=== PATIENT | female | born 1955 | race Caucasian/White ===

== ENCOUNTER 2018-11-08 11:32 | Day surgery (SDC) | payer OTHER ==
[~2018-11-08] VITALS: Ht 157.5 cm; Wt 71.5 kg
[~2018-11-08 11:32] MED LIST: OMEPRAZOLE20 MG
== END 2018-11-08 13:49 | disposition home or self-care (01) ==
LOC: ORSCSDS 11:32
PROVIDERS: Surgery
PROC: 0DJD8ZZ Inspection of Lower Intestinal Tract, Via Natural or Artificial Opening Endoscopic (ICD-10-PCS; principal; 2018-11-08 13:00)
DX: Z12.11 Encounter for screening for malignant neoplasm of colon (principal); K57.30 Diverticulosis of large intestine without perforation or abscess without bleeding; K64.8 Other hemorrhoids; I10 Essential (primary) hypertension; K21.9 Gastro-esophageal reflux disease without esophagitis; Z79.899 Other long term (current) drug therapy
CPT/HCPCS: J2704; J7120

== ENCOUNTER 2019-03-17 02:58 | Emergency (ER) | payer OTHER ==
[~2019-03-17] VITALS: Ht 157.5 cm; Wt 69.0 kg
[~2019-03-17 02:58] MED LIST changes: +ACET325 PO; +Colace100 MG PO; +ESOM20 PO; +Hydrocodone-Ap1 EA23 PO
[2019-03-17 04:03] LABS: BASOPHILS ABSOLUTE AUTO 0.03 K/mm3 (0.00-0.23); BASOPHILS PERCENT AUTO 0 % (0-2); EOSINOPHILS ABSOLUTE AUTO 0.11 K/mm3 (0.00-0.68); EOSINOPHILS PERCENT AUTO 1 % (0-6); Hematocrit 35.6 % (33.0-51.0); Hemoglobin 11.5 g/dL (11.5-16.0); IMMATURE GRAN ABSOLUTE AUTO 0.02 K/mm3 (0.00-0.10); IMMATURE GRAN PERCENT AUTO 0 % (0-1); LYMPHOCYTES ABSOLUTE AUTO 2.36 K/mm3 (0.84-5.20); LYMPHOCYTES PERCENT AUTO 27 % (21-46); MONOCYTES ABSOLUTE AUTO 0.47 K/mm3 (0.16-1.47); MONOCYTES PERCENT AUTO 5 % (4-13); Mean Corpuscular HGB 28.1 pg (26.0-34.0); Mean Corpuscular HGB Conc 32.3 g/dL (31.5-36.5); Mean Corpuscular Volume 87 fL (80-100); Mean Platelet Volume 9.5 fL (9.1-12.4); NEUTROPHILS PERCENT AUTO 66 % (41-73); Platelet Count 274 K/mm3 (150-400); RDW Standard Deviation 41.5 fL (35.1-46.3); Red Blood Cell Count 4.09 M/mm3 (3.80-5.20); White Blood Cell Count 8.69 K/mm3 (4.00-11.30)
[2019-03-17 04:27] LABS: Alanine Aminotransfer (ALT/SGP 20 U/L (12-78); Albumin, Blood 3.6 g/dL (3.4-5.0); Alk Phos 79 U/L (50-136); Anion Gap 7 mmol/L (6-16); Aspartate Aminotrans (AST/SGOT 15 U/L (12-37); Bilirubin, Total 0.2 mg/dL (0.1-1.0); Blood Urea Nitrogen 18 mg/dL (8-24); Bun/Creatinine Ratio 22.8 (12.0-20.0); CO2, Blood 26 mmol/L (21-32); Calcium, Blood 8.7 mg/dL (8.5-10.1); Chloride, Blood 106 mmol/L (98-108); Creatinine, Blood 0.79 mg/dL (0.40-1.00); Globulin, Blood 3.5 g/dL (2.2-4.0); Glomerular Filtration Rate >60 (60-); Glucose, Blood 120 mg/dL (70-99); Potassium, Blood 3.7 mmol/L (3.5-5.5); Sodium, Blood 139 mmol/L (136-145); Total Protein, Blood 7.1 g/dL (6.4-8.2)
[2019-03-17 05:31] LABS: Magnesium, Blood 2.3 mg/dL (1.6-2.4)
[2019-03-17 05:39] LABS: Troponin I <0.015 ng/mL (0.000-0.040)
== END 2019-03-17 07:05 | disposition home or self-care (01) ==
LOC: ER 02:58
PROVIDERS: Emergency Medicine
DX: K29.70 Gastritis, unspecified, without bleeding (principal); K21.9 Gastro-esophageal reflux disease without esophagitis; Z79.899 Other long term (current) drug therapy
CPT/HCPCS: 36415; 74176; 80053; 83690; 83735; 84145; 84484; 85025; 93005; 93010; 96361; 96374; 96375; 99285-25; J1170; J2405; J7030

== ENCOUNTER → 2022-07-22 | Outpatient (CLI) | payer OTHER ==
[~2022-07-22] MED LIST changes: +OMEP20ER PO
[2022-07-23 13:08] LABS: Stool Occult Bld Immuno 1 Negative (NEGATIVE)
== END ==
LOC: LAB SHORT 07:30 → LAB 07:30
PROVIDERS: Internal Medicine
DX: D53.9 Nutritional anemia, unspecified (principal)
CPT/HCPCS: 82274